=== PATIENT | male | born 1955 | race Caucasian/White ===

== ENCOUNTER 2022-09-11 17:11 | Emergency (ER) | payer OTHER ==
[2022-09-11] MEDS ORDERED: Acetaminophen/Codeine 30-300mg Tablet ONE (18:24)
== END 2022-09-11 18:33 | disposition home or self-care (01) ==
LOC: ERS 17:11
DX: R22.43 Localized swelling, mass and lump, lower limb, bilateral (principal); I10 Essential (primary) hypertension; Z79.899 Other long term (current) drug therapy